=== PATIENT | female | born 1990 | race Caucasian/White ===

== ENCOUNTER 2017-06-15 15:22 | Outpatient (CLI) | payer BC, MEDICAID ==
[~2017-06-15] VITALS: Ht 160 cm; Wt 116.4 kg
[~2017-06-15 15:22] MED LIST: IBUP-1222 PO; OXYC-302 PO; PREN1TAB60 PO
[2017-06-15 15:51] VITALS: BP 127/69
[2017-06-15 16:08] LABS: AMNISURE NEGATIVE (NEGATIVE)
[2017-06-15] MEDS ORDERED: LEVO75TA5 PO (16:16)
[2017-06-15] MEDS ORDERED: INSU100I18 SQ ×2 (16:22→16:25)
[2017-06-15] MEDS ORDERED: NPH,100V5 SQ ×2 (16:23→16:28)
== END 2017-06-15 16:40 | disposition home or self-care (01) ==
LOC: LDOP 15:22
PROVIDERS: ATTEND Obstetrics & Gynecology
DX: O42.913 Preterm premature rupture of membranes, unspecified as to length of time between rupture and onset of labor, third trimester (principal); O24.419 Gestational diabetes mellitus in pregnancy, unspecified control; Z3A.36 36 weeks gestation of pregnancy
CPT/HCPCS: 59025; 84112; 99211; G0463

== ENCOUNTER 2017-06-27 21:50 | Inpatient (IN) | payer BC, MEDICAID ==
[~2017-06-27] VITALS: Ht 160 cm; Wt 120.5 kg
[~2017-06-27 21:50] MED LIST changes: +INSU100I18 SQ; +LEVO75TA5 PO; +NPH,100V5 SQ
[2017-06-27 22:00] VITALS: BP 124/72
[2017-06-27] MEDS ORDERED: NEWBORN KIT ONE (22:13)
[2017-06-27] MEDS ORDERED: LIDOCAINE 1%, 20ML ONE (22:13)
[2017-06-27] MEDS ORDERED: MISOPROSTOL 200 MCG TABLET ONE (22:13)
[2017-06-27] MEDS ORDERED: OXYTOCIN 30U/ 0.9% NaCL 500ML 500 ML ONE (22:14)
[2017-06-27] MEDS ORDERED: D5%-LACTATED RINGERS 1,000 ML IV SCH (22:14)
[2017-06-27] MEDS ORDERED: OXYTOCIN 30U/ 0.9% NaCL 500ML 500 ML IV ONE (22:14)
[2017-06-27] MEDS ORDERED: FENTANYL PF 100 MCG/2ML IVPush PRN (22:30)
[2017-06-27] MEDS ORDERED: ONDANSETRON 2MG/ML, 2ML IVPush PRN (22:30)
[2017-06-27] MEDS ORDERED: FENTANYL PF 100 MCG/2ML IV PRN (22:30)
[2017-06-27 22:42] LABS: BASOPHILS # (AUTO) 0.04 x10^3/uL (0-0.1); BASOPHILS % (AUTO) 0 % (0-1); EOSINOPHILS # (AUTO) 0.12 x10^3/uL (0-0.4); EOSINOPHILS % (AUTO) 1 % (1-7); LYMPHOCYTES # (AUTO) 2.28 x10^3/uL (1-3.4); LYMPHOCYTES % (AUTO) 23 % (22-44); MD NO; MEAN CORPUSCULAR HEMOGLOBIN 25.8 pg (27.0-34.8); MEAN CORPUSCULAR HGB CONC 32.4 g/dL (32.4-35.8); MEAN CORPUSCULAR VOLUME 79.6 fL (80-100); MEAN PLATELET VOLUME 8.5 fL (7.4-10.4); MONOCYTES # (AUTO) 0.76 x10^3/uL (0.2-0.8); MONOCYTES % (AUTO) 8 % (2-9); NEUTROPHILS # (AUTO) 6.54 x10^3/uL (1.8-6.8); NEUTROPHILS % (AUTO) 67 % (42-75); PLATELET COUNT 321 x10^3/uL (130-400); RED BLOOD COUNT 4.96 x10^6/uL (3.82-5.3); RED CELL DISTRIBUTION WIDTH 16.6 % (9.6-15.2)
[2017-06-27] MEDS ORDERED: FENTANYL/BUPIV./NS/PF 250 ML EPIDCONT ONE (22:44)
[2017-06-27] MEDS ORDERED: BUPIVACAINE 0.25% ONE (22:44)
[2017-06-27] MEDS ORDERED: LIDOCAINE/PF 1.5%-EPI 1:200K, 30ML ONE (22:50)
[2017-06-27] MEDS: LACTATED RINGERS 1,000 ML IV SCH (22:55)
[2017-06-27] MEDS ORDERED: LACTATED RINGERS 1,000 ML IV SCH (23:10)
[2017-06-27] MEDS ORDERED: FENTANYL/BUPIV./NS/PF 250 ML EPIDCONT SCH (23:10)
[2017-06-27] MEDS ORDERED: LACTATED RINGERS 1,000 ML IVBOLUS PRN (23:30)
[2017-06-28] MEDS ORDERED: PLEASE ENTER HEIGHT AND WEIGHT MC SCH (01:00)
[2017-06-28] MEDS: OXYTOCIN 30U/ 0.9% NaCL 500ML 500 ML IV SCH ×2 (01:07→11:07)
[2017-06-28] MEDS ORDERED: ONDANSETRON 2MG/ML, 2ML IV PRN (01:30)
[2017-06-28] MEDS ORDERED: CALCIUM CARBONATE 500 MG TAB.CHEW PO PRN (01:30)
[2017-06-28] MEDS ORDERED: OXYcodone IR 5MG TABLET PO PRN (01:30)
[2017-06-28] MEDS ORDERED: DIPH,PERTUSS(ACELL),TET VAC/PF NC IM-VACC PRN (01:30)
[2017-06-28] MEDS ORDERED: MEASLES,MUMPS&RUBELLA VACC/PF 0.5 ML SQ PRN (01:30)
[2017-06-28] MEDS ORDERED: RHOGAM FROM BLOOD BANK 1 NOTE EA IM/IV ONE (01:30)
[2017-06-28] MEDS ORDERED: MISOPROSTOL 200 MCG TABLET PR PRN (01:30)
[2017-06-28] MEDS ORDERED: MAGNESIUM HYDROXIDE 8%, 30ML UDC PO PRN (01:30)
[2017-06-28] MEDS ORDERED: OXYTOCIN 30U/ 0.9% NaCL 500ML 500 ML ONE (02:03)
[2017-06-28 04:00] VITALS: BP 114/72
[2017-06-28] MEDS: IBUPROFEN 600 MG TABLET PO PRN ×2 (04:53→13:56)
[2017-06-28] MEDS: LACTATED RINGERS 1,000 ML IV SCH (06:14)
[2017-06-28] MEDS: DOCUSATE 100 MG CAPSULE PO PRN ×2 (07:40→19:29)
[2017-06-28] MEDS: PRENATAL VIT/IRON/FA 1 EACH TABLET PO SCH (07:40)
[2017-06-28] MEDS: LEVOTHYROXINE 75 MCG TABLET PO SCH (07:40)
[2017-06-28 08:20] VITALS: BP 117/63
[2017-06-28] MEDS: OXYcodone/APAP 5/325MG TABLET PO PRN ×3 (08:48→19:29)
[2017-06-28 09:30] LABS: BASOPHILS # (AUTO) 0.05 x10^3/uL (0-0.1); BASOPHILS % (AUTO) 1 % (0-1); EOSINOPHILS # (AUTO) 0.07 x10^3/uL (0-0.4); EOSINOPHILS % (AUTO) 1 % (1-7); LYMPHOCYTES # (AUTO) 1.81 x10^3/uL (1-3.4); LYMPHOCYTES % (AUTO) 19 % (22-44); MD NO; MEAN CORPUSCULAR HEMOGLOBIN 26.1 pg (27.0-34.8); MEAN CORPUSCULAR HGB CONC 32.9 g/dL (32.4-35.8); MEAN CORPUSCULAR VOLUME 79.3 fL (80-100); MEAN PLATELET VOLUME 8.2 fL (7.4-10.4); MONOCYTES # (AUTO) 0.63 x10^3/uL (0.2-0.8); MONOCYTES % (AUTO) 7 % (2-9); NEUTROPHILS # (AUTO) 6.94 x10^3/uL (1.8-6.8); NEUTROPHILS % (AUTO) 73 % (42-75); PLATELET COUNT 291 x10^3/uL (130-400); RED BLOOD COUNT 4.66 x10^6/uL (3.82-5.3); RED CELL DISTRIBUTION WIDTH 16.5 % (9.6-15.2)
[2017-06-28 12:00] VITALS: BP 109/64
[2017-06-28 16:30] VITALS: BP 116/72
[2017-06-28 19:30] VITALS: BP 112/52
[2017-06-29 00:25] VITALS: BP 109/56
[2017-06-29] MEDS: OXYcodone/APAP 5/325MG TABLET PO PRN ×2 (00:57→06:10)
[2017-06-29] MEDS: IBUPROFEN 600 MG TABLET PO PRN (00:57)
[2017-06-29] MEDS: LEVOTHYROXINE 75 MCG TABLET PO SCH (06:10)
[2017-06-29 08:10] VITALS: BP 120/61
[2017-06-29] MEDS: DOCUSATE 100 MG CAPSULE PO PRN (08:12)
[2017-06-29] MEDS: PRENATAL VIT/IRON/FA 1 EACH TABLET PO SCH (08:12)
[2017-06-29] MEDS ORDERED: IBUP-1223 PO (08:44)
[2017-06-29] MEDS ORDERED: OXYC-302 PO (08:44)
== END 2017-06-29 11:25 | disposition home or self-care (01) | DRG 775 ==
LOC: LDOP 21:50 → LDIP 22:23 → 2NW 06-28 03:32
PROVIDERS: ADMIT Obstetrics & Gynecology; ATTEND Obstetrics & Gynecology
PROC: 10E0XZZ Delivery of Products of Conception, External Approach (ICD-10-PCS; principal; 2017-06-28)
PROC: 3E033VJ Introduction of Other Hormone into Peripheral Vein, Percutaneous Approach (ICD-10-PCS; 2017-06-28)
PROC: 10907ZC Drainage of Amniotic Fluid, Therapeutic from Products of Conception, Via Natural or Artificial Opening (ICD-10-PCS; 2017-06-28)
PROC: 3E0R3BZ Introduction of Anesthetic Agent into Spinal Canal, Percutaneous Approach (ICD-10-PCS; 2017-06-28)
PROC: 00HU33Z Insertion of Infusion Device into Spinal Canal, Percutaneous Approach (ICD-10-PCS; 2017-06-28)
DX: O24.429 Gestational diabetes mellitus in childbirth, unspecified control (principal); Z68.42 Body mass index [BMI] 45.0-49.9, adult; E66.01 Morbid (severe) obesity due to excess calories; E03.9 Hypothyroidism, unspecified; O99.284 Endocrine, nutritional and metabolic diseases complicating childbirth; O99.214 Obesity complicating childbirth; Z3A.38 38 weeks gestation of pregnancy; Z37.0 Single live birth
CPT/HCPCS: 36415; 82803; 85025; 86850; 86900; 99285; J3490; J2590; J3010; J7120